=== PATIENT | female | born 1985 | race Hispanic/Latino ===

== ENCOUNTER 2019-11-25 08:26 | Emergency (ER) | payer OTHER ==
--- NOTE | 2019-11-25 09:17 | ER ---
Nurse's Notes [facility] Name: Nancy Jackson Age: 34 yrs Sex: Female : 1985 Arrival Date: 11/25/2019 Time: 08:30 Bed 19 Private MD: Diagnosis: Chest pain, unspecified;Headache Presentation: 11/24 08:37 Chief complaint: Left sided chest tightness and frontal headache x 2 days. hb +photosensitivity, denies N/V/cough/fever. Coronavirus screen: Proceed with normal triage. Ebola Screen: No symptoms or risks identified at this time. Initial Sepsis Screen: Does the patient meet any 2 criteria? No. Patient's initial sepsis screen is negative. Does the patient have a suspected source of infection? No. Patient's initial sepsis screen is negative. Risk Assessment: Do you want to hurt yourself or someone else? Patient reports no desire to harm self or others. Onset of symptoms was November 24, 2019. 08:37 Method Of Arrival: Ambulatory hb 08:37 Acuity: JOEY 3 hb Triage Assessment: 09:32 Pain: Pain. 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 - Social history:: Smoking status: Patient denies any tobacco usage or history of. Screenin:36 Abuse screen: Denies threats or abuse. Denies injuries from another. Nutritional ph screening: No deficits noted. Tuberculosis screening: No symptoms or risk factors identified. Fall Risk None identified. Assessment: 09:10 Reassessment: Patient appears in no apparent distress at this time. Patient and/or ph family updated on plan of care and expected duration. Pain level reassessed. Dr Gonzalez at bedside to exam pt, pt reports L sided breast/chest pain, pain is reproducible upon palpation. 09:14 General: Appears in no apparent distress. comfortable, well groomed, Behavior is calm, ph cooperative, appropriate for age, Denies fever, feeling ill. Pain: Complains of pain in head and L side of chest. Neuro: Level of Consciousness is awake, alert, obeys commands, Oriented to person, place, time, situation. Cardiovascular: Reports chest pain, Capillary refill < 3 seconds in bilateral fingers Patient's skin is warm and dry. Respiratory: Airway is patent Respiratory effort is even, unlabored, Respiratory pattern is regular, symmetrical, Denies cough, shortness of breath. GI: No signs and/or symptoms were reported involving the gastrointestinal system. Derm: Skin is intact, is healthy with good turgor, Skin is pink, warm \T\ dry. Vital Signs: 08:37 BP 140 / 97; Pulse 88; Resp 16; Temp 98.9(O); Pulse Ox 100% on R/A; Weight 74.84 kg; hb Height 5 ft. 4 in. (162.56 cm); Pain 5/10; 09:32 BP 122 / 86; Pulse 78; Resp 18; Temp 97.9; Pulse Ox 99% on R/A; ph 08:37 Body Mass Index 28.32 (74.84 kg, 162.56 cm) hb ED Course: 08:30 Patient arrived in ED. mr 08:32 Ara Amezcua, RN is Primary Nurse. ph 08:34 Alexander Gonzalez MD is Attending Physician. kdr 08:36 Arm band placed on Patient placed in an exam room, on a stretcher. ph 08:37 Patient has correct armband on for positive identification. Bed in low position. Call ph light in reach. Side rails up X 1. Pulse ox on. NIBP on. Door closed. Noise minimized. Warm blanket given. 08:41 Triage completed. hb 09:30 No provider procedures requiring assistance completed. Patient did not have IV access ph during this emergency room visit. Administered Medications: No medications were administered Outcome: 09:17 Discharge ordered by . kdr 09:31 Discharged to home ambulatory. ph 09:31 Condition: good 09:31 Discharge instructions given to patient, Instructed on discharge instructions, follow up and referral plans. Demonstrated understanding of instructions, follow-up care. 09:33 Patient left the ED. ph Signatures: Alexander Gonzalez MD MD [facility] Graciela Pineda mr Ara Amezcua, KAREN RN ph Vidhi Oliveira RN RN
--- NOTE | 2019-11-25 09:17 | EDPHYS ---
Physician Documentation [facility] Name: Nancy Jackson Age: 34 yrs Sex: Female : 1985 Arrival Date: 11/25/2019 Time: 08:30 Bed 19 Private MD: ED Physician Alexander Gonzalez HPI: 11/24 08:57 This 34 yrs old Female presents to ER via Ambulatory with complaints of kdr Headache, Chest Tightness. 08:57 The patient c/o one day of TONY (frontal) and chest discomfort - states that her left kdr breast is herd and right breast is soft with minor pain to left and right chest. She denies fever, chills, n/v or any other associated s/s. She states that give all that is going on now she didn't want to take any chances. Onset: The symptoms/episode began/occurred yesterday. Severity of symptoms: At their worst the symptoms were mild in the emergency department the symptoms are unchanged. The patient has not experienced similar symptoms in the past. The patient has not recently seen a physician. 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 - Social history:: Smoking status: Patient denies any tobacco usage or history of. ROS: 08:57 Constitutional: Negative for fever, chills, and weight loss, Eyes: Negative for injury, kdr pain, redness, and discharge, ENT: Negative for injury, pain, and discharge, Neck: Negative for injury, pain, and swelling, Respiratory: Negative for shortness of breath, cough, wheezing, and pleuritic chest pain, Abdomen/GI: Negative for abdominal pain, nausea, vomiting, diarrhea, and constipation, Back: Negative for injury and pain, : Negative for injury, bleeding, discharge, and swelling, MS/Extremity: Negative for injury and deformity, Skin: Negative for injury, rash, and discoloration, Neuro: Negative for headache, weakness, numbness, tingling, and seizure activity. Psych: Negative for depression, anxiety, suicide ideation, homicidal ideation, and hallucinations, Allergy/Immunology: Negative for hives, rash, and allergies, Endocrine: Negative for neck swelling, polydipsia, polyuria, polyphagia, and marked weight changes, Hematologic/Lymphatic: Negative for swollen nodes, abnormal bleeding, and unusual bruising. 08:57 Cardiovascular: Positive for chest pain, Negative for edema, orthopnea, palpitations, paroxysmal nocturnal dyspnea. Exam: 08:57 Constitutional: This is a well developed, well nourished patient who is awake, alert, kdr and in no acute distress. Head/Face: Normocephalic, atraumatic. Eyes: Pupils equal round and reactive to light, extra-ocular motions intact. Lids and lashes normal. Conjunctiva and sclera are non-icteric and not injected. Cornea within normal limits. Periorbital areas with no swelling, redness, or edema. Neck: Trachea midline, no thyromegaly or masses palpated, and no cervical lymphadenopathy. Supple, full range of motion without nuchal rigidity, or vertebral point tenderness. No Meningismus. Chest/axilla: Normal chest wall appearance and motion. Nontender with no deformity. No lesions are appreciated. Cardiovascular: Regular rate and rhythm with a normal S1 and S2. No gallops, murmurs, or rubs. Normal PMI, no JVD. No pulse deficits. Respiratory: Lungs have equal breath sounds bilaterally, clear to auscultation and percussion. No rales, rhonchi or wheezes noted. No increased work of breathing, no retractions or nasal flaring. Abdomen/GI: Soft, non-tender, with normal bowel sounds. No distension or tympany. No guarding or rebound. No evidence of tenderness throughout. Back: No spinal tenderness. No costovertebral tenderness. Full range of motion. Skin: Warm, dry with normal turgor. Normal color with no rashes, no lesions, and no evidence of cellulitis. MS/ Extremity: Pulses equal, no cyanosis. Neurovascular intact. Full, normal range of motion. Neuro: Awake and alert, GCS 15, oriented to person, place, time, and situation. Cranial nerves II-XII grossly intact. Motor strength 5/5 in all extremities. Sensory grossly intact. Cerebellar exam normal. Normal gait. Psych: Awake, alert, with orientation to person, place and time. Behavior, mood, and affect are within normal limits. Vital Signs: 08:37 BP 140 / 97; Pulse 88; Resp 16; Temp 98.9(O); Pulse Ox 100% on R/A; Weight 74.84 kg; hb Height 5 ft. 4 in. (162.56 cm); Pain 5/10; 09:32 BP 122 / 86; Pulse 78; Resp 18; Temp 97.9; Pulse Ox 99% on R/A; ph 08:37 Body Mass Index 28.32 (74.84 kg, 162.56 cm) hb MDM: 08:57 Data reviewed: vital signs, nurses notes. Counseling: I had a detailed discussion with kdr the patient and/or guardian regarding: the historical points, exam findings, and any diagnostic results supporting the discharge/admit diagnosis, the need for outpatient follow up. 09:17 Patient medically screened. kdr Administered Medications: No medications were administered Disposition: 11/25/19 09:17 Discharged to Home. Impression: Chest pain, unspecified, Headache. - Condition is Stable. - Discharge Instructions: General Headache Without Cause, Nonspecific Chest Pain, [id number], Viral Respiratory Infection, [id number]. - Medication Reconciliation Form, Thank You Letter form. - Follow up: Private Physician; When: 2 - 3 days; Reason: If symptoms return, Further diagnostic work-up, Recheck today's complaints, Continuance of care, Re-evaluation by your physician. - Problem is new. - Symptoms are unchanged. Signatures: Alexander Gonzalez MD MD kdr Ara Amezcua RN RN ph Corrections: (The following items were deleted from the chart) 09:33 09:17 11/25/2019 09:17 Discharged to Home. Impression: Chest pain, unspecified; ph Headache. Condition is Stable. Forms are Medication Reconciliation Form, Thank You Letter, Antibiotic Education, Prescription Opioid Use. Follow up: Private Physician; When: 2 - 3 days; Reason: If symptoms return, Further diagnostic work-up, Recheck today's complaints, Continuance of care, Re-evaluation by your physician. Problem is new. Symptoms are unchanged. kdr
--- OUTSIDE RECORDS SUMMARY | 2019-11-25 09:30 | XMS REPORT | Summary of Care ---
:1985 Author Organization [facility] - Health Address [address] [place] [address] Care Team Providers Name Role Phone Pcp, Patient Does Not Have A Primary Care Provider [phone] Encounter Details Date Type Department Care Team Description 09/05/2019 Orders Only [facility] Doctor Unassigned, No [address] [facility] [place] [address] [address] [place] [address] Allergies No Known Allergiesdocumented as of this encounter (statuses as of 09/05/2019) Medications Medication Sig Dispensed Refills Start Date End Date Status ACETAMINOPHEN (TYLENOL Take by mouth. 0 Active ORAL) methylPREDNISolone Take 21 tablets 1 Each 0 05/26/2016 Active (MEDROL, RAMESH,) 4 mg by mouth tablets SEE-INSTRUCTIONS . follow package directions documented as of this encounter (statuses as of 09/05/2019) Active Problems Not on filedocumented as of this encounter (statuses as of 09/05/2019) Social History Tobacco Use Types Packs/Day Years Used Date Never Smoker Alcohol Use Drinks/Week oz/Week Comments Not Asked 0 Standard drinks or equivalent 0.0 Sex Assigned at Date Recorded Not on file Job Start Date Occupation Industry Not on file Not on file Not on file Travel History Travel Start Travel End No recent travel history available. documented as of this encounter Last Filed Vital Signs Not on filedocumented in this encounter Plan of Treatment Date Type Specialty Care Team Description 09/05/2019 Office Visit Orthopedic Surgery Zuleyka Flores MD [address] [place], [place] [address] Health Maintenance Due Date Last Done Comments VARICELLA VACCINES (1 of 2 - 1984 2-dose childhood series) DTaP,Tdap,and Td Vaccines (1 - 1994 Tdap) PAP SMEAR 06/15/2007 06/15/2004 INFLUENZA VACCINE (#1) 2019 PNEUMOCOCCAL 0-64 YEARS COMBINED Aged Out No longer eligible based on SERIES patient's age to complete this topic documented as of this encounter Procedures Procedure Name Priority Date/Time Associated Diagnosis Comme nts CONSENT/REFUSAL FOR Routine 09/05/2019 10:57 AM DIAGNOSIS AND TREATMENT [employer]ER[employer]CH[employer]IC ASSIGNMENT OF BENEFITS Routine 09/05/2019 10:57 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
--- OUTSIDE RECORDS SUMMARY | 2019-11-25 09:30 | XMS REPORT | Summary of Care ---
:1985 Author Organization [facility] - [facility] Address [address] [place] [address] Care Team Providers Name Role Phone Pcp, Patient Does Not Have A Primary Care Provider [phone] Reason for Visit Reason Comments Knee Pain Right knee injury DOI: 0 (Routine) Status Reason Specialty Diagnoses / Referred By Referred To Procedures Contact Contact Closed ORT-ORTHOPAEDIC Diagnoses R leg pain Wil Flores Craig SURGERY / Procedures CONSULT/REFERRAL ORTHOPAEDIC SURGERY FOLLOW-UP VISIT MD Randa Tolentino MD Orthopedic Surgery [address] [place] [address] [place] [phone] Phone: Fax: Encounter Details Date Type Department Care Team Description 09/05/2019 Office Visit [facility] Orthopaedic Wil Flores cute pain of right Surgery- Jonh Tolentino MD knee (Primary Dx) [address] [place] [address] [place], [place] [phone] Allergies No Known Allergiesdocumented as of this encounter (statuses as of 09/05/2019) Medications Medication Sig Dispensed Refills Start Date End Date Status ACETAMINOPHEN (TYLENOL Take by mouth. 0 Active ORAL) methylPREDNISolone Take 21 tablets 1 Each 0 05/26/2016 Active (MEDROL, RAMESH,) 4 mg by mouth tablets SEE-INSTRUCTIONS . follow package directions phentermine 37.5 mg 0 06/30/2019 Active tablet phentermine 37.5 mg 0 06/30/2019 Active tablet sulfamethoxazole-trimeth 0 08/29/2019 Active oprim 800-160 mg per tablet diclofenac 75 mg EC Take 1 tablet by 60 tablet 1 09/05/2019 Active tabletIndications: Acute mouth 2 (two) pain of right knee times daily with meals. documented as of this encounter (statuses as of 09/05/2019) Active Problems Not on filedocumented as of this encounter (statuses as of 09/05/2019) Social History Tobacco Use Types Packs/Day Years Used Date Never Smoker Smokeless Tobacco: Never Used Alcohol Use Drinks/Week oz/Week Comments Not Asked 0 Standard drinks or equivalent 0.0 Sex Assigned at Date Recorded Not on file Job Start Date Occupation Industry Not on file Not on file Not on file Travel History Travel Start Travel End No recent travel history available. documented as of this encounter Last Filed Vital Signs Vital Sign Reading Time Taken Comments Blood Pressure 130/86 09/05/2019 11:13 AM PEDIATRIC NP Pulse 70 09/05/2019 11:13 AM PEDIATRIC NP Temperature - - Respiratory Rate - - Oxygen Saturation - - Inhaled Oxygen Concentration - - Weight 76.2 kg (168 lb) 09/05/2019 11:13 AM PEDIATRIC NP Height 162.6 cm (5' 4") 09/05/2019 11:13 AM PEDIATRIC NP Body Mass Index 28.84 09/05/2019 11:13 AM PEDIATRIC NP documented in this encounter Progress Notes Wil Flores MD - 09/05/2019 11:00 AM CST Nancy Hernandez is a 34 year old female Chief Complaint Patient presents with Knee Pain Right knee injury DOI: 08/09/19 Vitals: 09/05/19 1113 BP: 130/86 BP Location: Left arm Patient Position: Sitting BP CUFF SIZE: Adult Medium Pulse: 70 Weight: 76.2 kg (168 lb) Height: 64" (162.6 cm) [facility] [place] [facility] [place], [place] - [address] Incident occurred: 08/09/19 Incident location: home Injury mechanism: patient slipped landing on knee Pain location: right knee DME status: none Radiology status: none All Vitals taken, allergies and all medications reviewed, fall risk assessed. Pain level 5/10. RINA ZEPEDA MA 09/05/2019 11:19 AM Nancy Hernandez is a 34 year old female. Knee Pain Incident onset: approx 1 month ago. The incident occurred in the street. The injury mechanism was a fall. The pain is present in the right knee. The quality of the pain is described as aching, burning and stabbing. The pain is at a severity of 6/10. The pain is moderate. The pain has been intermittentsince onset. Associated symptoms include an inability to bear weight. The symptoms are aggravated bymovement and weight bearing. She has tried non-weight bearing, ice and heat for the symptoms. The treatment provided mild relief. Allergies Nancy has No Known Allergies. Medications Outpatient Medications Prior to Visit Medication Sig Dispense Refill phentermine 37.5 mg tablet phentermine 37.5 mg tablet sulfamethoxazole-trimethoprim 800-160 mg per tablet ACETAMINOPHEN (TYLENOL ORAL) Take by mouth. methylPREDNISolone (MEDROL, RAMESH,) 4 mg tablets Take 21 tablets by mouth SEE- INSTRUCTIONS. followpackage directions 1 Each 0 No facility-administered medications prior to visit. Histories No past medical history on file. Past Surgical History: Procedure Laterality Date OTHER Left arm Social History Socioeconomic History Marital status: Single Spouse name: Not on file Number of children: Not on file Years of education: Not on file Highest education level: Not on file Occupational History Not on file Social Needs Financial resource strain: Not on file Food insecurity: Worry: Not on file Inability: Not on file Transportation needs: Medical: Not on file Non-medical: Not on file Tobacco Use Smoking status: Never Smoker Smokeless tobacco: Never Used Substance and Sexual Activity Alcohol use: Not on file Drug use: Not on file Sexual activity: Not on file Lifestyle Physical activity: Days per week: Not on file Minutes per session: Not on file Stress: Not on file Relationships Social connections: Talks on phone: Not on file Gets together: Not on file Attends jehovah's witness service: Not on file Active member of club or organization: Not on file Attends meetings of clubs or organizations: Not on file Relationship status: Not on file Intimate partner violence: Fear of current or ex partner: Not on file Emotionally abused: Not on file Physically abused: Not on file Forced sexual activity: Not on file Other Topics Concern Not on file Social History Narrative Not on file Family History Problem Relation Age of Onset Hypertension Mother Diabetes Maternal Grandmother Diabetes Paternal Grandmother Review of Systems Constitutional: Negative. HENT: Negative. Eyes: Negative. Respiratory: Negative. Breasts: Negative. Cardiovascular: Negative. Gastrointestinal: Negative. Genitourinary: Negative. Musculoskeletal: Positive for joint swelling. Skin: Negative. Neurological: Negative. Psychiatric/Behavioral: Negative. Endocrine: Endocrine negative Vital Signs Ht 64" (162.6 cm) | Wt 77.1 kg (170 lb) | BMI 29.18 kg/m Physical Exam Musculoskeletal: Right knee: She exhibits decreased range of motion. Tenderness found. Medial joint line and lateral joint line tenderness noted. General: Well-developed well-nourished oriented to person place and time HEENT normocephalic atraumatic atraumatic pupils equal round reactive to light extraocular muscles intact Cervical thoracic and lumbar spine without focal deficit normal kyphosis and lordosis Chest clear to auscultation and percussion Cardiovascular regular rate and rhythm without gallop rub or murmur soft without organomegaly Normal bowel sounds Neurologic: Focal myotome or dermatomal deficits Vascular: Intact symmetrical bilateral upper and lower extremities Skin without stasis varicosities or breakdown Extremities without cyanosis clubbing or edema Lymphatics no peripheral lymphedema Psych normal mood and affect. Neurovascular function is intact. To include brisk capillary refill warm pink skin active motor function and sensory function intact. Nursing note and vitals reviewed. Assessment/Plan Diagnosis: right knee pain Plan diclofenac ATRIC NP documented in this encounter Plan of Treatment Health Maintenance Due Date Last Done Comments VARICELLA VACCINES (1 of 2 - 1984 2-dose childhood series) DTaP,Tdap,and Td Vaccines ( - 1994 Tdap) PAP SMEAR 06/15/2007 06/15/2004 INFLUENZA VACCINE (#1) 2019 PNEUMOCOCCAL 0-64 YEARS COMBINED Aged Out No longer eligible based on SERIES patient's age to complete this topic documented as of this encounter Results Not on filedocumented in this encounter Visit Diagnoses Diagnosis Acute pain of right knee - Primary documented in this encounter [phone] (Work) documented as of this encounter
--- OUTSIDE RECORDS SUMMARY | 2019-11-25 09:30 | XMS REPORT | Summary of Care ---
:1985 Author Organization [facility] - [facility] Address [address] [place] [address] Care Team Providers Name Role Phone Pcp, Patient Does Not Have A Primary Care Provider [phone] Reason for Visit Reason Comments Knee Pain Right knee injury DOI: 0 (Routine) Status Reason Specialty Diagnoses / Referred By Referred To Procedures Contact Contact Closed ORT-ORTHOPAEDIC Diagnoses R leg pain Wil Flores Craig SURGERY / Procedures CONSULT/REFERRAL ORTHOPAEDIC SURGERY FOLLOW-UP VISIT MD Randa Tolentino MD Orthopedic Surgery [address] [place] [place] [phone] Phone: Fax: Encounter Details Date Type Department Care Team Description 09/05/2019 Office Visit [facility] Orthopaedic Wil Flores cute pain of right Surgery- Jonh Tolentino MD knee (Primary Dx) [address] [place] [address] [place], [place] [phone] Allergies No Known Allergiesdocumented as of [...] Comments Blood Pressure 130/86 09/05/2019 11:13 AM [employer] Pulse 70 09/05/2019 11:13 AM [employer] [employer] Temperature - - Respiratory Rate - - Oxygen Saturation - - Inhaled Oxygen Concentration - - Weight 76.2 kg (168 lb) 09/05/2019 11:13 AM [employer] [employer] Height 162.6 cm (5' 4") 09/05/2019 11:13 AM [employer] [employer] Body Mass Index 28.84 09/05/2019 11:13 AM [employer] documented in this encounter Progress Notes Wil Flores MD - 09/05/2019 11:00 AM CST Nancy Hernandez is a 34 year old female Chief Complaint Patient presents with Knee Pain Right knee injury DOI: 08/09/19 Vitals: 09/05/19 1113 BP: 130/86 BP Location: Left arm Patient Position: Sitting BP CUFF SIZE: Adult Medium Pulse: 70 Weight: 76.2 kg (168 lb) Height: 64" (162.6 cm) [facility] [place] - [place], [place] - [address] Incident occurred: 08/09/19 [...] file Gets together: Not on file Attends mu-ism service: Not on file Active member of [...] Assessment/Plan Diagnosis: right knee pain Plan diclofenac [facility] documented in this encounter Plan of Treatment [...] knee - Primary documented in this encounter [phone] (Work) documented as of this encounter
[2019-11-25 09:45] VITALS: BP 122/86; TEMP 97.9; O2SAT 99
== END 2019-11-25 09:33 | disposition home or self-care (01) ==
LOC: ER 08:26
DX: R07.9 Chest pain, unspecified (principal)
CPT/HCPCS: 99283

== ENCOUNTER 2020-09-27 10:04 | Emergency (ER) | payer OTHER ==
--- OUTSIDE RECORDS SUMMARY | 2020-09-27 10:07 | XMS REPORT | Continuity of Care Document ---
:1985 Author Organization [facility] t Address [address] [place] [address] Care Team Providers Name Role Phone Sandra INFANTE, Wil Tolentino Attending Clinician Problems This patient has no known problems. Allergies, Adverse Reactions, Alerts This patient has no known allergies or adverse reactions. Medications This patient has no known medications. Procedures This patient has no known procedures. Encounters Start End Encounter Admission Attending Care Care Encounter Source Date/Time Date/Time Type Type Clinicians Facility Department ID 2019-09-05 2019-09-05 Office MICKEY Flores [id number] 11:12:47 11:24:55 Visit Wil Tolentino [facility] [id number] Surgical [id number] Specialti [id number] [address] Results This patient has no known results.
[2020-09-27 11:15] LABS: Urine Blood NEGATIVE (NEG); Urine Glucose NEGATIVE (NEG); Urine Protein NEGATIVE (NEG)
[2020-09-27 11:17] LABS: Urine Bacteria NONE SEEN /HPF (<20); Urine RBC <5 /HPF (NONE SEEN); Urine Urothelial Cells <5 /HPF (NONE SEEN)
[2020-09-27 11:46] LABS: Absolute Lymphocytes (CBC) 1.9 K/uL (0.7-4.9); Basophils % 0.7 % (0-1.3); Hematocrit 39.8 % (36.0-45.0); Lymphocytes % 31.1 % (15.3-44.8); MPV 10.3 fL (7.6-11.3); RBC Red Blood Cell Count 4.44 M/uL (3.86-4.86)
--- NOTE | 2020-09-27 11:49 | ER ---
Nurse's Notes [facility] Name: Nancy Jackson Age: 35 yrs Sex: Female : 1985 Arrival Date: 09/27/2020 Time: 10:08 Bed 20 Private MD: Diagnosis: Paresthesia of skin-right abdomen Presentation: 09/27 10:22 Chief complaint: Patient states: R sided abd pain for 3-4 months. No fever. No N/V/D. ll1 No urinary symptoms. Not . LMP:09/03/20. Coronavirus screen: Client denies travel out of the [place] in the last 14 days. At this time, the client does not indicate any symptoms associated with coronavirus-19. Ebola Screen: Patient denies travel to an Ebola-affected area in the 21 days before illness onset. Initial Sepsis Screen: Does the patient meet any 2 criteria? No. Patient's initial sepsis screen is negative. Does the patient have a suspected source of infection? Yes: Acute abdominal pain. Risk Assessment: Do you want to hurt yourself or someone else? Patient reports no desire to harm self or others. Onset of symptoms was June 08, 2020. 10:22 Method Of Arrival: Ambulatory ll1 10:22 Acuity: JOEY 3 ll1 Historical: - Allergies: 10:22 No Known Allergies; ll1 - PMHx: 10:22 None; ll1 - PSHx: 10:22 None; ll1 - Immunization history:: Flu vaccine is up to date. - Social history:: Smoking status: Patient reports the use of cigarette tobacco products, denies chronic smoking, but will smoke occasionally. Screenin:10 Abuse screen: Denies threats or abuse. Denies injuries from another. Nutritional iw screening: No deficits noted. Tuberculosis screening: No symptoms or risk factors identified. Fall Risk None identified. Assessment: 12:09 Reassessment: Patient appears in no apparent distress at this time. Patient and/or iw family updated on plan of care and expected duration. Pain level reassessed. Patient is alert, oriented x 3, equal unlabored respirations, skin warm/dry/pink. Vital Signs: 10:22 BP 151 / 97; Pulse 75; Resp 16; Temp 98.1; Pulse Ox 98% ; Weight 77.11 kg; Height 5 ft. ll1 3 in. (160.02 cm); Pain 3/10; 10:22 Body Mass Index 30.11 (77.11 kg, 160.02 cm) ll1 ED Course: 10:08 Patient arrived in ED. mr 10:22 Arm band placed on. ll1 10:24 Triage completed. ll1 10:27 Sindi Villalobos, RN is Primary Nurse. iw 10:35 Marcel Garrido PA is PHCP. jr8 10:35 Cedric Richards MD is Attending Physician. jr8 11:00 Initial lab(s) drawn, by me, sent to lab. Inserted saline lock: 20 gauge in right iw antecubital area, using aseptic technique. 11:17 US Extrmty Nonvasular Limited In Process Unspecified. EDMS 12:10 No provider procedures requiring assistance completed. IV discontinued, intact, iw bleeding controlled, No redness/swelling at site. Pressure dressing applied. Administered Medications: No medications were administered Outcome: 11:49 Discharge ordered by . jr8 12:10 Discharged to home ambulatory. iw 12:10 Condition: good 12:10 Discharge instructions given to patient, Instructed on discharge instructions, follow up and referral plans. Demonstrated understanding of instructions, follow-up care. 12:10 Patient left the ED. iw Signatures: Dispatcher [employer] EDIN Graciela Pineda mr Sindi Villalobos, RN KAREN iw Marcel Garrido PA PA jrRuslan Ramirez RN RN 1
--- NOTE | 2020-09-27 11:49 | EDPHYS ---
Physician Documentation [facility] Name: Nancy Jackson Age: 35 yrs Sex: Female : 1985 Arrival Date: 09/27/2020 Time: 10:08 Bed 20 Private MD: ED Physician Cedric Richards HPI: 09/27 11:42 This 35 yrs old Female presents to ER via Ambulatory with complaints of Flank jr8 Pain. 11:42 Onset: The symptoms/episode began/occurred gradually. Modifying factors: The symptoms jr8 are alleviated by nothing. the symptoms are aggravated by nothing. Associated signs and symptoms: The patient has no apparent associated signs or symptoms. Severity of pain: At its worst the pain was mild in the emergency department the pain is unchanged. The patient has not experienced similar symptoms in the past. The patient has not recently seen a physician. Patient stated that since she had liposuction completed has had right anterior and lateral flank pain which she describes as burning in nature. Feels that it is superficial. Nothing makes it better or worse. Stated that when she touches the area also cannot feel as well on right side as she has in past. Had seroma collection from surgery that they had to drain one other time. Didn't know if that was the problem again . Historical: - Allergies: 10:22 No Known Allergies; ll1 - PMHx: 10:22 None; ll1 - PSHx: 10:22 None; ll1 - Immunization history:: Flu vaccine is up to date. - Social history:: Smoking status: Patient reports the use of cigarette tobacco products, denies chronic smoking, but will smoke occasionally. ROS: 11:42 Eyes: Negative for injury, pain, redness, and discharge, ENT: Negative for injury, jr8 pain, and discharge, Neck: Negative for injury, pain, and swelling, Cardiovascular: Negative for chest pain, palpitations, and edema, Respiratory: Negative for shortness of breath, cough, wheezing, and pleuritic chest pain, Back: Negative for injury and pain, MS/Extremity: Negative for injury and deformity, Skin: Negative for injury, rash, and discoloration, Neuro: Negative for headache, weakness, numbness, tingling, and seizure. 11:42 Abdomen/GI: Positive for abdominal pain, Negative for nausea, vomiting, and diarrhea, constipation, abdominal cramps, abdominal distension. Exam: 11:42 Eyes: Pupils equal round and reactive to light, extra-ocular motions intact. Lids and jr8 lashes normal. Conjunctiva and sclera are non-icteric and not injected. Cornea within normal limits. Periorbital areas with no swelling, redness, or edema. ENT: Nares patent. No nasal discharge, no septal abnormalities noted. Tympanic membranes are normal and external auditory canals are clear. Oropharynx with no redness, swelling, or masses, exudates, or evidence of obstruction, uvula midline. Mucous membranes moist. Neck: Trachea midline, no thyromegaly or masses palpated, and no cervical lymphadenopathy. Supple, full range of motion without nuchal rigidity, or vertebral point tenderness. No Meningismus. Cardiovascular: Regular rate and rhythm with a normal S1 and S2. No gallops, murmurs, or rubs. Normal PMI, no JVD. No pulse deficits. Respiratory: Lungs have equal breath sounds bilaterally, clear to auscultation and percussion. No rales, rhonchi or wheezes noted. No increased work of breathing, no retractions or nasal flaring. Back: No spinal tenderness. No costovertebral tenderness. Full range of motion. Skin: Warm, dry with normal turgor. Normal color with no rashes, no lesions, and no evidence of cellulitis. MS/ Extremity: Pulses equal, no cyanosis. Neurovascular intact. Full, normal range of motion. Neuro: Awake and alert, GCS 15, oriented to person, place, time, and situation. Cranial nerves II-XII grossly intact. Motor strength 5/5 in all extremities. Sensory grossly intact. Cerebellar exam normal. Normal gait. 11:42 Abdomen/GI: Inspection: scar(s), are noted in the right lower quadrant and left lower quadrant, Bowel sounds: active, all quadrants, Palpation: abdomen is soft and non-tender, in all quadrants, Indicators: McBurney's point is not tender, Diop's sign is negative, Rovsing's sign is negative, Liver: tenderness, is not appreciated, mild decrease in sensation over the right mid abdomen when compared to left side. Vital Signs: 10:22 BP 151 / 97; Pulse 75; Resp 16; Temp 98.1; Pulse Ox 98% ; Weight 77.11 kg; Height 5 ft. ll1 3 in. (160.02 cm); Pain 3/10; 10:22 Body Mass Index 30.11 (77.11 kg, 160.02 cm) ll1 MDM: 10:35 Patient medically screened. [facility] 11:42 Data reviewed: vital signs, nurses notes, lab test result(s), radiologic studies, jr8 ultrasound. Data interpreted: Pulse oximetry: on room air is 98 %. Interpretation: normal. Counseling: I had a detailed discussion with the patient and/or guardian regarding: the historical points, exam findings, and any diagnostic results supporting the discharge/admit diagnosis, lab results, radiology results, the need for outpatient follow up, a family practitioner, to return to the emergency department if symptoms worsen or persist or if there are any questions or concerns that arise at home. ED course: Discussed with patient based on exam, labs, and imaging. I explained to her that I feel that this is adverse effect of the liposuction. Could be minor nerve damage to that specific region since it is burning in nature and with decreased sensation. No rashes, pain with palpation, or ultrasound findings of fluid collection. Recommended f/u with PCP but at this time noting emergent needs to be done. Patient good with this and will f/u. 09/27 10:35 Order name: Basic Metabolic Panel; Complete Time: 11:59 [facility] 09/27 10:35 Order name: CBC with Diff; Complete Time: 12:04 09/27 10:35 Order name: Hepatic Function; Complete Time: 11:59 09/27 10:35 Order name: Lipase; Complete Time: 11:59 [facility] 09/27 10:35 Order name: Urine Microscopic Only; Complete Time: 11:40 09/27 10:42 Order name: Urine Dipstick--Ancillary (enter results); Complete Time: 11:40 09/27 10:35 Order name: IV Saline Lock; Complete Time: 11: 09/27 10:35 Order name: Labs collected and sent; Complete Time: 11: 09/27 10:35 Order name: Urine Test (obtain specimen); Complete Time: 10:47 09/27 10:35 Order name: Urine Dipstick-Ancillary (obtain specimen); Complete Time: 10:47 09/27 10:42 Order name: Urine --Ancillary (enter results); Complete Time: 11:40 bd 09/27 11:01 Order name: US [place] Nonvasular Limited; Complete Time: 11:56 jr8 Administered Medications: No medications were administered Disposition: 14:39 Co-signature as Attending Physician, Cedric Richards MD. rn Disposition: 09/27/20 11:49 Discharged to Home. Impression: Paresthesia of skin - right abdomen. - Condition is Stable. - Discharge Instructions: Paresthesia. - Medication Reconciliation Form, Thank You Letter, Antibiotic Education, Prescription Opioid Use form. - Follow up: Private Physician; When: 2 - 3 days; Reason: Recheck today's complaints, Continuance of care, Re-evaluation by your physician. - Problem is new. - Symptoms have improved. Signatures: Dispatcher [employer] EDSindi Lee, RN Cedric Lemons MD MD rn Roszak, Josh, PA PA jr8 Ruslan Singleton RN RN ll1 Corrections: (The following items were deleted from the chart) 12:10 11:49 09/27/2020 11:49 Discharged to Home. Impression: Paresthesia of skin - right iw abdomen. Condition is Stable. Forms are Medication Reconciliation Form, Thank You Letter, Antibiotic Education, Prescription Opioid Use. Follow up: Private Physician; When: 2 - 3 days; Reason: Recheck today's complaints, Continuance of care, Re-evaluation by your physician. Problem is new. Symptoms have improved. jr8
--- NOTE | 2020-09-27 11:52 | RAD REPORT ---
EXAM DESCRIPTION: US - Extremity Nonvascular Limited - 09/27/2020 11:17 am CLINICAL HISTORY: r/o seroma right anterior flank;Pain Pain along the right flank COMPARISON: 1ST TRIMESTER SINGLE OR 1ST FE dated 06/09/2009 TECHNIQUE: Real-time sonographic evaluation of the area of interest was performed right anterior fla nk. FINDINGS: No soft tissue mass or hematoma is evident. No pathologic fluid collection seen in the reg ion. IMPRESSION: Negative examination.
[2020-09-27 11:58] LABS: Albumin 3.9 g/dL (3.4-5.0); Bilirubin Direct 0.2 mg/dL (0-0.2); Bilirubin Total 0.7 mg/dL (0.2-1.0); Potassium 3.7 mmol/L (3.5-5.1); Protein, Total 7.4 g/dL (6.4-8.2)
[2020-09-27 12:15] VITALS: BP 151/97; TEMP 98.1; O2SAT 98
== END 2020-09-27 12:10 | disposition home or self-care (01) ==
LOC: ER 10:04
DX: R20.2 Paresthesia of skin (principal); F17.210 Nicotine dependence, cigarettes, uncomplicated
CPT/HCPCS: 36415; 76882; 80048; 80076; 81003; 81015; 81025; 83690; 85025; 99283